=== PATIENT | female | born 2005 | race Caucasian/White ===

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

== ENCOUNTER → 2023-04-07 12:34 | Outpatient (CLI) | payer OTHER, MEDICAID, SELFPAY ==
--- NOTE | 2023-04-07 | DI.RAD.S_ITS ---
PROCEDURE: XR CHEST 2V INDICATIONS: COUGH TECHNIQUE: 2 views of the chest were acquired. COMPARISON: None. FINDINGS: Surgical changes and devices: None. Lungs and pleura: Lungs are clear. No pleural effusions or pneumothorax. Mediastinum: Mediastinal contours are normal. Heart size is normal. Bones and chest wall: No suspicious bony abnormalities. Soft tissues appear unremarkable. IMPRESSION: No acute cardiopulmonary abnormality. Dictated by: Max Onofre M.D. on 04/07/2023 at 14:14 Approved by: Max Onofre M.D. on 04/07/2023 at 14:18
== END ==
PROVIDERS: Family Provider Pediatrics; PCP Physician Assistant Medical; Referring Provider Physician Assistant Medical; Visit Provider Physician Assistant Medical
DX: R07.9 Chest pain, unspecified (principal); R05.9 Cough, unspecified; R53.83 Other fatigue
CPT/HCPCS: 71046

== ENCOUNTER 2023-05-11 19:56 | Emergency (ER) | payer OTHER, MEDICAID, SELFPAY ==
[2023-05-11 20:04] VITALS: BP 132/65; PULSE 98; RESP 16; TEMP 37.1; O2SAT 98; BMI 18.7
[2023-05-11 20:30] LABS: Add Manual Diff / Slide Review NO; Basophils Absolute Auto 0 /uL (0-100); Basophils Percent Auto 0.5 % (0-2); Eosinophils Absolute Auto 0 /uL (0-450); Eosinophils Percent Auto 0.3 % (2-4); Hematocrit 40.4 % (36-46); Hemoglobin 13.6 g/dL (12.0-16.0); Lymphocytes Absolute Auto 1600 /uL (1100-4500); Lymphocytes Percent Auto 17.4 % (25-40); Mean Corpuscular HGB Conc 33.8 % (30-36); Mean Corpuscular Hemoglobin 29.1 PG (26-34); Mean Corpuscular Volume 86.3 fL (80-100); Monocytes Absolute Auto 800 /uL (0-900); Monocytes Percent Auto 9.1 % (3-14); Neutrophils Absolute Auto 6700 /uL (1500-7000); Neutrophils Percent Auto 72.7 % (50-75); Platelet Count 297 X10^3/uL (150-400); Red Blood Cell Count 4.68 X10^6/uL (4.0-5.2); Red Cell Distribution Width 13.7 % (11.6-14.8); White Blood Cell Count 9.2 X10^3/uL (4.5-11.0)
[2023-05-11] MEDS: ONDANSETRON 4 MG/2 ML INJ IV (20:31)
[2023-05-11] MEDS: SODIUM CHLORIDE 0.9% 1,000 ML 1000 ML IV ×2 (20:31→21:48)
--- NOTE | 2023-05-11 20:37 | PC.NURSE ---
Pt states 7 1/2 weeks . states takes zofran 8mg without relief so hasn't taken it in 2 days, states first .
[2023-05-11 20:47] LABS: Alanine Aminotransferase 24 IU/L (<35); Albumin 4.6 g/dL (3.5-5.0); Albumin Globulin Ratio 1.3 (1.0-2.8); Alkaline Phosphatase 54 U/L (38-126); Aspartate Aminotransferase 30 IU/L (14-36); BUN Creatinine Ratio 21.2 (6-22); Bilirubin Total 1.2 mg/dL (0.2-1.3); Blood Urea Nitrogen 11 mg/dL (7-17); Calcium 9.6 mg/dL (8.4-10.2); Carbon Dioxide 20 mmol/L (22-32); Chloride 102 mmol/L (98-107); Estimated Glomerular Filt Rate > 60 mL/min (>60); Globulin 3.6 g/dL (1.7-4.1); Glucose 78 mg/dL (70-100); HEMOLYSIS < 15 (0-50); Sodium 135 mmol/L (137-145); Total Protein 8.2 g/dL (6.3-8.2)
[2023-05-11 21:28] LABS: HCG Quantitative /Beta subunit 90195 mIU/mL
--- NOTE | 2023-05-11 21:34 | ED.NAVMDI ---
HPI - Nausea/Vomiting/Diarrhea General Chief complaint: Nausea/Vomiting/Diarrhea Stated complaint: 7 1/2 weeks cant hold anything down 48hrs Time Seen by Provider: 05/11/23 20:11 Source: patient Mode of arrival: Ambulatory History of Present Illness HPI Narrative: 17-year-old young woman who is 7 weeks by LMP scheduled for 1st OB ultrasound later this week has been seen in clinic only. She is a . Presents with severe nausea and vomiting. She does have Zofran available at home but has been unable to keep anything down for the last 48 hours. No fevers cough or chills. She is not having any vaginal discharge cramping or bleeding. The her significant other and father of the baby is with her and notes that there is multiple twins that run in his family. Related Data Previous Rx's Medication Instructions Recorded mupirocin 2 % topical ointment 1 applic topical BID #22 grams 10/09/22 ondansetron 4 mg disintegrating 4 mg PO Q8H PRN nausea and 10/09/22 tablet vomiting #10 tabs metoclopramide HCl 10 mg tablet 10 mg PO Q6H PRN nausea and 11/07/22 (Reglan) vomiting #20 tabs Allergies Allergy/AdvReac Type Severity Reaction Status Date / Time gluten Allergy Verified 10/03/21 19:18 Review of Systems Review of Systems Narrative: Pertinent positive and negative findings as per HPI Patient History Medical History (Updated 05/12/23 @ 00:44 by Maria Fernanda Hamilton MD) Healthy adolescent Surgical History No history of previous surgery Social History Smoking Status: Never smoker Smoking Status: Never smoker alcohol intake frequency: holidays/special occasions only Substance Use Type: marijuana Exam Initial Vital Signs Initial Vital Signs: Vital Signs Temperature 98.7 F 05/11/23 20:04 Pulse Rate 98 H 05/11/23 20:04 Respiratory Rate 16 05/11/23 20:04 Blood Pressure 132/65 05/11/23 20:04 Pulse Oximetry 98 05/11/23 20:04 Oxygen Delivery Method Room Air 05/11/23 20:04 General: Alert, somewhat pale clutching a blue barf bag Respiratory: Able to speak in full sentences, no obvious respiratory distress Skin: No obvious rashes, warm and dry Neurologic: Grossly intact no obvious asymmetries or abnormalities Abdomen: Soft nontender nondistended Psych: appropriate insight and affect, cooperative Bedside ultrasound: Even after a full L of fluid she has almost no urine in her bladder. I am wondering if I am seeing two gestational sacs. The I am not seeing a pole or heart rate. Will obtain official Ob ultrasound Course Orders Ordered: ED Orders 05/11/23 20:20 Beta HCG, Quant [HCG Quantitative /Beta subunit] Stat Complete Blood Count AUTO DIFF Stat Comprehensive Metabolic Panel Stat 05/11/23 21:43 US OB <= 14 weeks fetus Stat Discontinued Medications Sodium Chloride (Normal Saline 0.9%) 1,000 mls @ 1,000 mls/hr IV BOLUS ONE Stop: 05/11/23 21:10 Last Infusion: 05/11/23 21:32 Dose: 0 mls/hr Documented By: Admin: 05/11/23 20:31 Dose: 1,000 mls/hr Documented By: VIANNEY Sodium Chloride (Normal Saline 0.9%) 1,000 mls @ 1,000 mls/hr IV BOLUS ONE Stop: 05/11/23 22:43 Last Infusion: 05/11/23 22:18 Dose: 0 mls/hr Documented By: Admin: 05/11/23 21:48 Dose: 1,000 mls/hr Documented By: BRANDO Ondansetron HCl (Ondansetron 4 Mg/2 Ml Inj) 4 mg IV NOW ONE Stop: 05/11/23 20:12 Last Admin: 05/11/23 20:31 Dose: 4 mg Documented By: VIANNEY Vital Signs Vital signs: Vital Signs - 8 hr 05/11/23 20:04 05/12/23 00:23 Temperature 98.7 F Pulse Rate 98 H 77 Respiratory Rate 16 18 Blood Pressure 132/65 108/51 L Pulse Oximetry 98 97 Oxygen Delivery Method Room Air Room Air MDM - Nausea/Vomiting/Diarrhea Lab Data 05/11/23 20:20 05/11/23 20:20 Labs: Lab Results 05/11/23 05/11/23 Range/Units 20:20 20:20 WBC 9.2 (4.5-11.0) X10^3/uL RBC 4.68 (4.0-5.2) X10^6/uL Hgb 13.6 (12.0-16.0) g/dL Hct 40.4 (36-46) % MCV 86.3 (80-100) fL MCH 29.1 (26-34) PG MCHC 33.8 (30-36) % RDW 13.7 (11.6-14.8) % Plt Count 297 (150-400) X10^3/uL Neut % (Auto) 72.7 (50-75) % Lymph % (Auto) 17.4 L (25-40) % [place] % (Auto) 9.1 (3-14) % Eos % (Auto) 0.3 L (2-4) % Baso % (Auto) 0.5 (0-2) % Neut # (Auto) 6700 (2205-4029) /uL Lymph # (Auto) 1600 (4022-1538) /uL [place] # (Auto) 800 (0-900) /uL Eos # (Auto) 0 (0-450) /uL Baso # (Auto) 0 (0-100) /uL Sodium 135 L (137-145) mmol/L Potassium 4.0 (3.4-5.1) mmol/L Chloride 102 (98-107) mmol/L Carbon Dioxide 20 L (22-32) mmol/L BUN 11 (7-17) mg/dL Creatinine 0.52 (0.52-1.04) mg/dL Estimated GFR > 60 (>60) mL/min BUN/Creatinine Ratio 21.2 (6-22) Glucose 78 (70-100) mg/dL Calcium 9.6 (8.4-10.2) mg/dL Total Bilirubin 1.2 (0.2-1.3) mg/dL AST 30 (14-36) IU/L ALT 24 (<35) IU/L Alkaline Phosphatase 54 (38-126) U/L Total Protein 8.2 (6.3-8.2) g/dL Albumin 4.6 (3.5-5.0) g/dL Globulin 3.6 (1.7-4.1) g/dL Albumin/Globulin Ratio 1.3 (1.0-2.8) HCG, Quant 49127 mIU/mL Urine Dip Bedside Urine Glucose Negative Bedside Urine Bilirubin - Negative Bedside Urine Ketone +++ 80 Urine Specific [place] 1.030 Bedside Urine Occult Blood - Negative Bedside Urine pH 6.0 Bedside Urine Protein - Negative Bedside Urine Urobilinogen - Negative Bedside Urine Nitrite - Negative Bedside Urine Leukocytes - Negative Esterase MDM Narrative Medical decision making narrative: CC: Nausea and vomiting with early Complicating co-morbidities: , 17 years old Data collected from: patient, significant other/father of the baby Differential considered: Hyperemesis gravidarum, normal early , ectopic , multiple gestation, molar Exam documented above, pertinent findings include: Moderately dehydrated but otherwise benign exam Lab Test results independently reviewed as above. Pertinent findings: CBC is unremarkable Chemistries are reassuring Quantitative hCG is 90,195 which can certainly be consistent with estimated 7 week gestational age Imaging studies independently reviewed: ultrasound shows single live intrauterine fetus gestational age 6 weeks 3 days with AREN of December 31. Treatments: 2 L of fluid, IV Zofran Discussion: Patient is feeling much better after the fluid resuscitation. Normal intrauterine reassurance is given. Reviewed labs as well as ultrasound findings. She has OB follow-up already scheduled. She has antiemetics available at home. We talked about diet alternatives that may be helpful with early nausea in . Questions are answered and she is safe for discharge Discharge Plan Departure Patient Disposition: Home Clinical Impression: Acute dehydration Qualifiers: Weeks of gestation: less than 8 weeks Qualified Code(s): Z3A.01 - Less than 8 weeks gestation of Nausea & vomiting Qualifiers: Vomiting type: unspecified Qualified Code(s): R11.2 - Nausea with vomiting, unspecified Instructions: A Survival Guide for Men, DI for Hyperemesis Gravidarum, DI for -- Discomforts and Remedies Activity Restrictions/Additional Instructions: Thank you for coming in today You were quite dehydrated. He certainly looks better and appear to feel better after receiving 2 L of fluid. Your blood work was very reassuring, there is no evidence of infection kidney problems liver problems. No significant electrolyte abnormalities. The ultrasound that we did shows a 6 week 3 day single baby inside your uterus. This gives you a due date of January 01, 2024. Congratulations! Please talk to your OB doctor. You may not need to repeat this ultrasound on Friday as scheduled. Please use the nausea medicine the available at home. Try small bits of fluid frequently and small bites of crackers to help with the nausea. If you find that you are getting worse or develop any new symptoms, please feel free to return to the emergency department for further evaluation. Prescriptions: No Action mupirocin 2 % ointment 1 applic topical BID Qty: 22 0RF ondansetron 4 mg tablet,disintegrating 4 mg PO Q8H PRN (Reason: nausea and vomiting) Qty: 10 0RF metoclopramide HCl [Reglan] 10 mg tablet 10 mg PO Q6H PRN (Reason: nausea and vomiting) Qty: 20 0RF Referrals: Caridad Zaidi PA-C [Primary Care Provider] - Stand Alone Forms: Patient Portal/API
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
[2023-05-12 00:23] VITALS: BP 108/51; PULSE 77; RESP 18; O2SAT 97
== END 2023-05-12 00:54 | disposition home or self-care (01) ==
PROVIDERS: Emergency Provider Emergency Medicine; Family Provider Pediatrics; PCP Physician Assistant Medical
DX: O21.9 Vomiting of pregnancy, unspecified (principal); E86.0 Dehydration; Z3A.01 Less than 8 weeks gestation of pregnancy
CPT/HCPCS: 36415; 76801; 76817; 80053; 81003; 84702; 85025; 96361; 96374; 99284; J2405

== ENCOUNTER → 2023-06-27 11:15 | Outpatient (CLI) | payer OTHER, MEDICAID, SELFPAY ==
[2023-06-27 12:14] LABS: Influenza A - CEPHEID Flu A NEGATIVE (NEGATIVE); Influenza B - CEPHEID Flu B NEGATIVE (NEGATIVE); Respiratory Syncytial Virus Negative (Negative)
[2023-06-27 12:16] LABS: COVID-19 CEPHEID 4-PLEX PCR Negative (Negative)
== END ==
PROVIDERS: Family Provider Pediatrics; PCP Physician Assistant Medical; Visit Provider Family Medicine
DX: J02.9 Acute pharyngitis, unspecified (principal)
CPT/HCPCS: 0241U

== ENCOUNTER → 2023-07-08 11:41 | Outpatient (CLI) | payer OTHER, MEDICAID, SELFPAY ==
[2023-07-08 13:03] LABS: Add Manual Diff / Slide Review NO; Basophils Absolute Auto 0 /uL (0-100); Basophils Percent Auto 0.5 % (0-2); Eosinophils Absolute Auto 100 /uL (0-450); Eosinophils Percent Auto 0.9 % (2-4); Hematocrit 34.4 % (36-46); Hemoglobin 12.2 g/dL (12.0-16.0); Lymphocytes Absolute Auto 1700 /uL (1100-4500); Lymphocytes Percent Auto 23.8 % (25-40); Mean Corpuscular HGB Conc 35.4 % (30-36); Mean Corpuscular Hemoglobin 31.4 PG (26-34); Mean Corpuscular Volume 88.7 fL (80-100); Monocytes Absolute Auto 600 /uL (0-900); Monocytes Percent Auto 8.7 % (3-14); Neutrophils Absolute Auto 4600 /uL (1500-7000); Neutrophils Percent Auto 66.1 % (50-75); Platelet Count 271 X10^3/uL (150-400); Red Blood Cell Count 3.88 X10^6/uL (4.0-5.2); Red Cell Distribution Width 16.2 % (11.6-14.8); White Blood Cell Count 6.9 X10^3/uL (4.5-11.0)
[2023-07-08 13:21] LABS: Appearance Urine UA SL CLOUDY; Bilirubin Urine UA NEGATIVE (NEGATIVE); Color Urine UA YELLOW; Glucose Urine UA NEGATIVE (Negative); Ketones Urine UA NEGATIVE (NEGATIVE); Leukocyte Esterase Urine UA NEGATIVE (NEGATIVE); Nitrite Urine UA NEGATIVE (Negative); Occult Blood Urine UA NEGATIVE (Negative); Protein Urine UA NEGATIVE (Negative); Specific Gravity Urine UA 1.015 (1.000-1.035); Urobilinogen Urine UA 0.2 E.U./dL (0.2)
[2023-07-09 07:23] LABS: RPR Screen Non Reactive (Non Reactive)
[2023-07-09 09:00] LABS: Varicella IgG Antibody <135 index (Immune >165)
[2023-07-10 18:25] LABS: Hepatitis B Surface Antigen NEGATIVE s/c (NEGATIVE); Rubella Antibody IgG 79.5 IU/mL (>15)
[2023-07-10 18:39] LABS: HIV 1 & 2 Ab/Ag 4th Gen Combo NEGATIVE (NEGATIVE); Hep C Virus Ab w/Reflex Quant NEGATIVE s/c (NEGATIVE)
== END ==
PROVIDERS: Family Provider Pediatrics; PCP Physician Assistant Medical; Referring Provider Family Medicine; Visit Provider Family Medicine
DX: Z34.00 Encounter for supervision of normal first pregnancy, unspecified trimester (principal)
CPT/HCPCS: 36415; 80055; 81003; 86787; 86803; 86850; 86900; 86901; 87086; 87389

== ENCOUNTER 2023-07-28 16:33 | Emergency (ER) | payer OTHER, MEDICAID, SELFPAY ==
[2023-07-28 16:45] VITALS: BP 117/68; PULSE 112; RESP 18; TEMP 37; O2SAT 96; BMI 18.8
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
[2023-07-28 17:21] LABS: Add Manual Diff / Slide Review NO; Basophils Absolute Auto 100 /uL (0-100); Basophils Percent Auto 0.7 % (0-2); Eosinophils Absolute Auto 100 /uL (0-450); Eosinophils Percent Auto 1.3 % (2-4); Hematocrit 31.2 % (36-46); Hemoglobin 11.1 g/dL (12.0-16.0); Lymphocytes Absolute Auto 1800 /uL (1100-4500); Lymphocytes Percent Auto 23.4 % (25-40); Mean Corpuscular HGB Conc 35.6 % (30-36); Mean Corpuscular Hemoglobin 31.7 PG (26-34); Monocytes Absolute Auto 700 /uL (0-900); Monocytes Percent Auto 9.6 % (3-14); Neutrophils Absolute Auto 4900 /uL (1500-7000); Platelet Count 285 X10^3/uL (150-400); Red Blood Cell Count 3.51 X10^6/uL (4.0-5.2); Red Cell Distribution Width 15.6 % (11.6-14.8); White Blood Cell Count 7.5 X10^3/uL (4.5-11.0)
[2023-07-28 17:24] LABS: Prothrombin Time 11.8 SECONDS (9.4-12.5)
[2023-07-28 17:29] LABS: Alanine Aminotransferase 17 IU/L (<35); Albumin 3.8 g/dL (3.5-5.0); Albumin Globulin Ratio 1.2 (1.0-2.8); Alkaline Phosphatase 51 U/L (38-126); Aspartate Aminotransferase 22 IU/L (14-36); BUN Creatinine Ratio 15.9 (6-22); Bilirubin Total 0.4 mg/dL (0.2-1.3); Blood Urea Nitrogen 7 mg/dL (7-17); Calcium 9.4 mg/dL (8.4-10.2); Carbon Dioxide 23 mmol/L (22-32); Chloride 104 mmol/L (98-107); Estimated Glomerular Filt Rate > 60 mL/min (>60); Globulin 3.2 g/dL (1.7-4.1); Glucose 95 mg/dL (70-100); HEMOLYSIS < 15 (0-50); Lipase 73 U/L (23-300); Potassium 3.7 mmol/L (3.4-5.1); Sodium 135 mmol/L (137-145)
[2023-07-28 17:51] LABS: Appearance Urine UA CLEAR; Bilirubin Urine UA NEGATIVE (NEGATIVE); Color Urine UA YELLOW; Glucose Urine UA NEGATIVE (Negative); Ketones Urine UA NEGATIVE (NEGATIVE); Leukocyte Esterase Urine UA NEGATIVE (NEGATIVE); Nitrite Urine UA NEGATIVE (Negative); Occult Blood Urine UA NEGATIVE (Negative); Protein Urine UA NEGATIVE (Negative); Specific Gravity Urine UA 1.015 (1.000-1.035); Urobilinogen Urine UA 0.2 E.U./dL (0.2)
[2023-07-28 18:02] LABS: Bacteria Urine Few (2-10); Culture Indicated Urine Cult Not Indicated; RBC Urine 0-1/HPF (0-5/HPF); Squamous Epithelial Cell Urine 1-5 /HPF (0-5/HPF); WBC Urine 0-1/HPF (0-5/HPF)
[2023-07-28 20:54] VITALS: BP 117/61; PULSE 73; RESP 14; O2SAT 100
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
[2023-07-28 21:56] VITALS: BP 128/72; PULSE 81; RESP 20; TEMP 36.6
== END 2023-07-28 21:55 | disposition home or self-care (01) ==
PROVIDERS: Emergency Medicine; Emergency Provider Emergency Medicine; Family Provider Pediatrics; PCP Physician Assistant Medical
DX: O26.892 Other specified pregnancy related conditions, second trimester (principal); M54.9 Dorsalgia, unspecified; V40.5XXA Car driver injured in collision with pedestrian or animal in traffic accident, initial encounter; Y92.410 Unspecified street and highway as the place of occurrence of the external cause; Z3A.18 18 weeks gestation of pregnancy
CPT/HCPCS: 36415; 76815; 80053; 81001; 83690; 85025; 85610; 86850; 86900; 86901; 99283; 99284

== ENCOUNTER → 2023-08-15 11:51 | Outpatient (CLI) | payer OTHER, MEDICAID, SELFPAY ==
[2023-08-21 21:42] LABS: AFP, Serum 49.7 ng/mL (.); Calc Gestational Age EDD (.); Estriol, Free 2.19 ng/mL (.); Inhibin A, Dimeric 115.72 pg/mL (.); Inhibin A, MoM 0.54 (.); Maternal Ethnicity Caucasian (.); Maternal Weight 116 lbs (.); Number of Fetuses No (.); OSBR Risk 1 IN 10000 (.); Results Report (.); Test Results *Screen Negative* (.); hCG, Serum 15316 mIU/mL (.)
== END ==
PROVIDERS: Family Provider Pediatrics; Referring Provider Family Medicine; Visit Provider Family Medicine
DX: Z34.00 Encounter for supervision of normal first pregnancy, unspecified trimester (principal); Z3A.15 15 weeks gestation of pregnancy
CPT/HCPCS: 36415; 82105; 82677; 84702; 86336

== ENCOUNTER → 2023-08-22 16:14 | Outpatient (CLI) | payer OTHER, MEDICAID, SELFPAY ==
--- NOTE | 2023-08-22 16:16 | DI.US.S_ITS ---
PROCEDURE: US OB >= 14 WEEKS FETUS INDICATIONS: ANATOMY OUTSIDE/PRIOR DATING DATA: Last menstrual period (LMP): 03/23/2023. LMP-based estimated date of delivery (AREN): 12/28/2023. (Working AREN) First dating scan (date and location): 05/11/2023. Estimated date of delivery (AREN) from first dating scan: 01/01/2024. TECHNIQUE: Real-time scanning was performed of the fetus, with image documentation and biometric measurements. COMPARISON: [facility], OB LIMITED, 07/28/2023, 17:13. FINDINGS: General: A single living intrauterine gestation is present. Presentation: Breech. Placenta: Placental position is fundal , without previa. Amniotic fluid index: 13.6 cm, normal range is 5-24 cm. Single deepest vertical pocket is 4.5 cm. heart rate: 149 beats per minute. Maternal cervical canal: 3.5 cm long. Normal lower limit is 2.5 cm. biometrics: Biparietal diameter: 5 centimeters, 21 weeks and 2 days Head circumference: 18.9 centimeters, 21 weeks and 1 day Abdominal circumference: 16.6 centimeters, 21 weeks and 4 days Femur length: 3.6 centimeters, 21 weeks and 3 days Clinically estimated gestational age: 21 weeks and 5 days Composite gestational age from present scan: 21 weeks and 3 days Estimated weight and percentile: 425 grams, 31st percentile Anatomic survey: Neuro: Ventricles are non-dilated at less than 10 mm. Cisterna magna is normal at 3-11 mm. Cerebellum is normal in size and morphology. Nuchal skin fold: Normal at less than 6 mm between 14-21 weeks gestational age. Face: Nose and lips, facial profile are normal. Spine: No evidence for spina bifida. Heart: 4-chambered heart is present, with normal ventricular outflow tracts. Diaphragm: Diaphragm is intact. Stomach: Left-sided stomach is present. Kidneys: No hydronephrosis. Normal is less than 5 mm in 2nd trimester, less than 7 mm in 3rd trimester. Cord: 3-vessel cord has orthotopic insertion. Bladder: Normal in size. Extremities: All 4 extremities identified. IMPRESSION: Living intrauterine gestation at 21 weeks and 5 days. Biometry is concordant, with EFW at the 31st percentile. No significant abnormalities on routine anatomic survey Dictated by: Kareem Guerrero M.D. on 08/26/2023 at 12:38 Approved by: Kareem Guerrero M.D. on 08/26/2023 at 12:43
== END ==
LOC: US 16:15
PROVIDERS: Family Provider Pediatrics; Referring Provider Family Medicine; Visit Provider Family Medicine
DX: Z34.82 Encounter for supervision of other normal pregnancy, second trimester (principal); Z3A.21 21 weeks gestation of pregnancy
CPT/HCPCS: 76811

== ENCOUNTER → 2023-09-16 14:08 | Outpatient (CLI) | payer OTHER, MEDICAID, SELFPAY ==
[2023-09-16 15:28] LABS: Add Manual Diff / Slide Review NO; Basophils Absolute Auto 0 /uL (0-100); Basophils Percent Auto 0.6 % (0-2); Eosinophils Absolute Auto 100 /uL (0-450); Eosinophils Percent Auto 1.3 % (2-4); Hematocrit 29.4 % (36-46); Hemoglobin 10.2 g/dL (12.0-16.0); Lymphocytes Absolute Auto 2000 /uL (1100-4500); Mean Corpuscular HGB Conc 34.7 % (30-36); Mean Corpuscular Hemoglobin 32.6 PG (26-34); Mean Corpuscular Volume 93.8 fL (80-100); Monocytes Absolute Auto 1000 /uL (0-900); Monocytes Percent Auto 13.1 % (3-14); Neutrophils Absolute Auto 4800 /uL (1500-7000); Platelet Count 315 X10^3/uL (150-400); Red Blood Cell Count 3.13 X10^6/uL (4.0-5.2); Red Cell Distribution Width 13.1 % (11.6-14.8); White Blood Cell Count 7.9 X10^3/uL (4.5-11.0)
[2023-09-16 15:48] LABS: GTT (PREG) 1 Hour PP 50gm Dose 96 mg/dL (76-139)
== END ==
PROVIDERS: Family Provider Pediatrics; Referring Provider Family Medicine; Visit Provider Family Medicine
DX: Z34.02 Encounter for supervision of normal first pregnancy, second trimester (principal); R42 Dizziness and giddiness
CPT/HCPCS: 36415; 82950; 85025

== ENCOUNTER → 2023-10-14 16:08 | Outpatient (CLI) | payer OTHER, MEDICAID, SELFPAY ==
[2023-10-14 18:07] LABS: Add Manual Diff / Slide Review NO; Basophils Absolute Auto 100 /uL (0-100); Basophils Percent Auto 0.6 % (0-2); Eosinophils Absolute Auto 100 /uL (0-450); Hematocrit 31.8 % (36-46); Hemoglobin 10.9 g/dL (12.0-16.0); Lymphocytes Absolute Auto 1900 /uL (1100-4500); Mean Corpuscular HGB Conc 34.1 % (30-36); Mean Corpuscular Hemoglobin 30.8 PG (26-34); Mean Corpuscular Volume 90.2 fL (80-100); Monocytes Absolute Auto 1000 /uL (0-900); Monocytes Percent Auto 10.8 % (3-14); Neutrophils Absolute Auto 6600 /uL (1500-7000); Neutrophils Percent Auto 67.6 % (50-75); Platelet Count 366 X10^3/uL (150-400); Red Blood Cell Count 3.53 X10^6/uL (4.0-5.2); Red Cell Distribution Width 12.5 % (11.6-14.8); White Blood Cell Count 9.7 X10^3/uL (4.5-11.0)
[2023-10-14 18:26] LABS: Alanine Aminotransferase 19 IU/L (<35); Albumin Globulin Ratio 1.1 (1.0-2.8); Alkaline Phosphatase 82 U/L (38-126); Aspartate Aminotransferase 25 IU/L (14-36); BUN Creatinine Ratio 13.6 (6-22); Bilirubin Total 0.4 mg/dL (0.2-1.3); Blood Urea Nitrogen 6 mg/dL (7-17); Calcium 9.6 mg/dL (8.4-10.2); Carbon Dioxide 24 mmol/L (22-32); Chloride 103 mmol/L (98-107); Estimated Glomerular Filt Rate > 60 mL/min (>60); Globulin 3.7 g/dL (1.7-4.1); Glucose 80 mg/dL (70-100); HEMOLYSIS < 15 (0-50); Potassium 4.4 mmol/L (3.4-5.1); Sodium 136 mmol/L (137-145); Total Protein 7.7 g/dL (6.3-8.2)
[2023-10-17 10:47] LABS: Bile Acids 3.6 umol/L (0.0-10.0)
== END ==
PROVIDERS: Family Provider Pediatrics; Referring Provider Family Medicine; Visit Provider Family Medicine
DX: Z34.00 Encounter for supervision of normal first pregnancy, unspecified trimester (principal)
CPT/HCPCS: 36415; 80053; 82239; 85025

== ENCOUNTER 2023-10-24 10:47 | Outpatient (CLI) | payer OTHER, MEDICAID, SELFPAY ==
--- NOTE | 2023-10-24 11:43 | PM.OBTRLD ---
Visit Information Visit Information Date of evaluation: 10/24/23 Primary OB Provider: Artemio Hussein Reason for Evaluation: Yes other Comments/Additional reasons for admission: 17-year-old G1 at GA 30+1 weeks sent from clinic due to report of decreased movement and perceived dropped beats on Doppler. No vb, lof, abd pain, ctx. [facility] Medical History (Updated 10/24/23 @ 11:48 by Artemio Hussein MD) PTSD (post-traumatic stress disorder) (~2020) Anxiety (~2016) Depression (~2016) GERD (gastroesophageal reflux disease) (~2019) Menorrhagia Dysmenorrhea (~2015) Irregular menses Frequent infections Contusion of right elbow Lumbar spine strain Gastroenteritis Abdominal pain Healthy adolescent Surgical History (Updated 08/30/23 @ 21:01 by Luda Avilez) Anesthesia History of endoscopy [place] teeth extracted (~09/02/19) Family History Grandfather Hypertension Heart disease Social History marital status: unmarried,living together number of children: 1 (s/o's son stays with them part-time) household members: significant other and family (father, brother) lives independently: Yes caregiver/support person: No housing: house pets and animals: Yes (outdoor cats) education level: high school (did not finish) 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) special donovan needs: No travel history: over 6 months ago seatbelt use: always water heater temp set < 120 deg: Yes working smoke detector in home: Yes fire extinguisher in home: Yes carbon monox detector in home: Yes firearms in home: Yes firearms unloaded and locked: Yes do you feel safe at home: Yes Smoking Status: Former smoker second hand exposure: Yes (s/o vapes, but usually not at home) alcohol intake: former (occasionally prior to ) substance use type: marijuana (agrees not to use while /) and 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) during the past year weight has: other (very unstable) well-balanced diet: daily or most days daily servings fruits/ve or more times/day caffeine: Yes (small amounts only) Type(s) of exercise: none Evaluation Evaluation Baseline heart rate: 145 Variability: Moderate (11-25) monitor accelerations: Present Monitor Decelerations: Absent Category of Tracing: Reactive Status: Category l Comments: No contractions Diagnosis, Plan/Disposition Final Diagnosis (1) Decreased movement affecting management of in third trimester: Status: Acute Plan/Disposition Plan: heart tracing reactive, category 1 inpatient now feeling her baby move regularly. Discharge home with return precautions, follow-up as scheduled visit in 2 weeks. OB Disposition: home
== END 2023-10-24 12:00 | disposition home or self-care (01) ==
LOC: LABOR 12:56 → OB 10-27 11:07
PROVIDERS: Family Provider Pediatrics; Referring Provider Family Medicine; Visit Provider Family Medicine
DX: O36.8130 Decreased fetal movements, third trimester, not applicable or unspecified (principal); Z3A.30 30 weeks gestation of pregnancy
CPT/HCPCS: 59025; G0378; G0379

== ENCOUNTER → 2023-12-05 14:59 | Outpatient (CLI) | payer OTHER, MEDICAID, SELFPAY ==
[2023-12-06 12:14] LABS: Strep Grp B PCR POS for Grp B Strep
== END ==
PROVIDERS: Family Provider Pediatrics; PCP Family Medicine; Visit Provider Family Medicine
DX: Z34.00 Encounter for supervision of normal first pregnancy, unspecified trimester (principal)
CPT/HCPCS: 87653

== ENCOUNTER 2023-12-14 20:19 | Outpatient (CLI) | payer OTHER, MEDICAID, SELFPAY ==
--- NOTE | 2023-12-14 21:00 | P.TNLD_ITS ---
Visit Information Visit Information Date of evaluation: 12/14/23 Primary OB Provider: Artemio Hussein On-call OB Provider: Mary Ruelas Reason for Evaluation: Yes rupture of membranes Comments/Additional reasons for admission: possible rupture of membranes/labor Vital Signs Vital Signs: BP 1145/69,, P 92, T 36.2 [facility] Medical History (Updated 12/14/23 @ 21:07 by Mary Ruelas MD) PTSD (post-traumatic stress disorder) (~2020) Anxiety (~2016) Depression (~2016) GERD (gastroesophageal reflux disease) (~2019) Menorrhagia Dysmenorrhea (~2015) Irregular menses Frequent infections Contusion of right elbow Lumbar spine strain Gastroenteritis Abdominal pain Healthy adolescent Surgical History (Updated 08/30/23 @ 21:01 by Luda Avilez) Anesthesia History of endoscopy [place] teeth extracted (~09/02/19) Family History Grandfather Hypertension Heart disease Social History marital status: unmarried,living together number of children: 1 (s/o's son stays with them part-time) household members: significant other and family (father, brother) lives independently: Yes caregiver/support person: No housing: house pets and animals: Yes (outdoor cats) education level: high school (did not finish) 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) special donovan needs: No travel history: over 6 months ago seatbelt use: always water heater temp set < 120 deg: Yes working smoke detector in home: Yes fire extinguisher in home: Yes carbon monox detector in home: Yes firearms in home: Yes firearms unloaded and locked: Yes do you feel safe at home: Yes Smoking Status: Former smoker second hand exposure: Yes (s/o vapes, but usually not at home) alcohol intake: former (occasionally prior to ) substance use type: marijuana (agrees not to use while /) and 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) during the past year weight has: other (very unstable) well-balanced diet: daily or most days daily servings fruits/ve or more times/day caffeine: Yes (small amounts only) Type(s) of exercise: none Review of Systems Review of Systems Narrative: Patient had intercourse this morning and had wet underwear after. She began have cramping /10 and her underwear was wet again. Evaluation Evaluation Baseline heart rate: 130 Variability: Average (6-10) monitor accelerations: Present Monitor Decelerations: Absent Contraction Frequency (minutes): 3 Uterine Contraction Intensity: Mild Category of Tracing: Reactive Status: Category l Cervical dilation (cm): 1 Cervical effacement (%): 0 station: -1 Non-invasive Membranes Rupture Test: negative Diagnosis, Plan/Disposition Final Diagnosis (1) False labor after 37 completed weeks of gestation: Status: Acute Plan/Disposition Plan: Reassurance not ruptured. Return if pain increases, more fluid leakage, concerns about baby movement OB Disposition: home
== END 2023-12-14 21:05 | disposition home or self-care (01) ==
LOC: OB 12-15 15:26
PROVIDERS: Family Provider Pediatrics; PCP Family Medicine; Referring Provider Specialist; Visit Provider Specialist
DX: O47.1 False labor at or after 37 completed weeks of gestation (principal); Z3A.37 37 weeks gestation of pregnancy
CPT/HCPCS: 59025; 84112; G0378; G0379

== ENCOUNTER 2023-12-22 19:37 | Emergency (ER) | payer OTHER, MEDICAID, SELFPAY ==
[2023-12-22 19:48] VITALS: BP 114/70; PULSE 101; RESP 20; TEMP 37; O2SAT 96; BMI 25.7
[2023-12-22 20:13] LABS: Strep Grp A by PCR Rapid Negative (Negative)
[2023-12-22 21:39] VITALS: BP 130/82; PULSE 98; RESP 18; O2SAT 98
--- NOTE | 2023-12-22 21:52 | ED.GENADULT ---
HPI - General Adult General Chief complaint: Upper Respiratory Symptoms Stated complaint: sudden onset short of breath, snt by center Time Seen by Provider: 12/22/23 19:58 Source: patient Mode of arrival: Ambulatory History of Present Illness HPI narrative: Patient is a 18-year-old female. at approximately 38 weeks EGA. No vaginal bleeding. No vaginal discharge she was here for evaluation of several weeks of shortness of breath now having a sore throat and sinus congestion and ear pain. No chest pain. She was having a cough. She contacted her OB provider who advised that she come to the emergency department for further evaluation. Related Data Previous Rx's Medication Instructions Recorded ondansetron 4 mg disintegrating 4 mg PO Q8H PRN nausea and 10/09/22 tablet vomiting #10 tabs ferrous gluconate 240 mg (27 mg 240 mg PO Q OTHER DAY 60 days #30 09/16/23 iron) tablet (Fergon) tabs triamcinolone acetonide 0.1 % 1 applic topical BID #80 grams 10/14/23 topical cream hydroxyzine pamoate 25 mg capsule 25 mg PO BEDTIME PRN for anxiety 10/24/23 (Vistaril) #60 caps Allergies Allergy/AdvReac Type Severity Reaction Status Date / Time gluten AdvReac Intermediate Abdominal Verified 12/19/23 10:27 Pain Review of Systems Review of Systems Narrative: See HPI Patient History Medical History PTSD (post-traumatic stress disorder) (~2020) Anxiety (~2016) Depression (~2016) GERD (gastroesophageal reflux disease) (~2019) Menorrhagia Dysmenorrhea (~2015) Irregular menses Frequent infections Contusion of right elbow Lumbar spine strain Gastroenteritis Abdominal pain Healthy adolescent Surgical History (Updated 08/30/23 @ 21:01 by Luda Avilez) Anesthesia History of endoscopy [place] teeth extracted (~09/02/19) Family History Grandfather Hypertension Heart disease Social History marital status: unmarried,living together number of children: 1 (s/o's son stays with them part-time) household members: significant other and family (father, brother) lives independently: Yes caregiver/support person: No housing: house pets and animals: Yes (outdoor cats) education level: high school (did not finish) 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) special donovan needs: No travel history: over 6 months ago seatbelt use: always water heater temp set < 120 deg: Yes working smoke detector in home: Yes fire extinguisher in home: Yes carbon monox detector in home: Yes firearms in home: Yes firearms unloaded and locked: Yes do you feel safe at home: Yes Smoking Status: Former smoker second hand exposure: Yes (s/o vapes, but usually not at home) alcohol intake: former (occasionally prior to ) substance use type: marijuana (agrees not to use while /) and 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) during the past year weight has: other (very unstable) well-balanced diet: daily or most days daily servings fruits/ve or more times/day caffeine: Yes (small amounts only) Type(s) of exercise: none Smoking Status: Former smoker alcohol intake frequency: holidays/special occasions only Substance Use Type: marijuana Exam Initial Vital Signs Initial Vital Signs: Vital Signs Temperature 98.6 F 12/22/23 19:48 Pulse Rate 101 H 12/22/23 19:48 Respiratory Rate 20 12/22/23 19:48 Blood Pressure 114/70 12/22/23 19:48 Pulse Oximetry 96 12/22/23 19:48 Oxygen Delivery Method Room Air 12/22/23 19:48 HENMT Head: normal to inspection and normocephalic Ears: TM's normal bilaterally Mouth: oral mucosae normal and moist mucous membranes Throat: posterior oropharynx normal and tonsils normal Resp Effort & Inspection: normal respiratory effort Auscultation: clear to auscultation bilaterally GI Other: Gravid abdomen Neuro General: patient alert, patient awake, patient oriented x3 and moves all extremities Course Orders Ordered: ED Orders 12/22/23 19:55 Strep Grp A by PCR Rapid Stat Vital Signs Vital signs: Vital Signs - 8 hr 12/22/23 19:48 12/22/23 21:39 Temperature 98.6 F Pulse Rate 101 H 98 H Respiratory Rate 20 18 Blood Pressure 114/70 130/82 Pulse Oximetry 96 98 Oxygen Delivery Method Room Air Room Air Medical Decision Making Lab Data Lab results reviewed: Yes I reviewed the patient's lab results. Labs: Lab Results 12/22/23 Range/Units 19:55 Group A Strep (PCR) Negative (Negative) MDM Narrative Medical decision making narrative: Rapid strep is negative. Lungs are clear. Low suspicion for pneumonia given her status we will hold on a chest x-ray for now. Rest of her HEENT exam is unremarkable. She has no -related complaints. Symptoms most consistent with viral URI. No indication for antibiotics. Given her status she is somewhat limited on what she can take but we did talk about Tylenol and also other decongestants such as Claritin under safety use in . Will discharge patient home with instructions to keep all of your scheduled medical appointments. She was given return precautions. She expressed understanding and agreement. Discharge Plan Departure Patient Disposition: Home Clinical Impression: Upper respiratory infection Instructions: DI for Viral Upper Respiratory Infection -- Adult Activity Restrictions/Additional Instructions: Keep all of your scheduled medical appointments. You can take Claritin to try to help with some of the nasal congestion. You can take Tylenol as well. Return to the emergency department for new symptoms. Prescriptions: No Action hydroxyzine pamoate [Vistaril] 25 mg capsule 25 mg PO BEDTIME PRN (Reason: for anxiety ) Qty: 60 0RF triamcinolone acetonide 0.1 % cream 1 applic topical BID Qty: 80 1RF ferrous gluconate [Fergon] 240 mg (27 mg iron) tablet 240 mg PO Q OTHER DAY 60 Days Qty: 30 2RF ondansetron 4 mg tablet,disintegrating 4 mg PO Q8H PRN (Reason: nausea and vomiting) Qty: 10 0RF Referrals: Artemio Hussein MD [Primary Care Provider] - Stand Alone Forms: Patient Portal/API
== END 2023-12-22 22:00 | disposition home or self-care (01) ==
PROVIDERS: Emergency Provider Emergency Medicine; Family Provider Pediatrics; PCP Family Medicine
DX: O99.513 Diseases of the respiratory system complicating pregnancy, third trimester (principal); J06.9 Acute upper respiratory infection, unspecified; Z3A.38 38 weeks gestation of pregnancy; Z87.891 Personal history of nicotine dependence
CPT/HCPCS: 87651; 99281; 99282

== ENCOUNTER 2023-12-23 17:00 | Observation (INO) | payer OTHER, MEDICAID, SELFPAY ==
[2023-12-23] MEDS: LACTATED RINGERS 1,000 ML 1000 ML IV (17:30)
[2023-12-23 18:01] LABS: Add Manual Diff / Slide Review NO; Basophils Absolute Auto 0 /uL (0-100); Basophils Percent Auto 0.2 % (0-2); Eosinophils Absolute Auto 0 /uL (0-450); Eosinophils Percent Auto 0.2 % (2-4); Hematocrit 29.5 % (36-46); Hemoglobin 9.8 g/dL (12.0-16.0); Lymphocytes Absolute Auto 1100 /uL (1100-4500); Lymphocytes Percent Auto 7.5 % (25-40); Mean Corpuscular HGB Conc 33.3 % (30-36); Mean Corpuscular Hemoglobin 28.6 PG (26-34); Mean Corpuscular Volume 85.8 fL (80-100); Monocytes Absolute Auto 1500 /uL (0-900); Monocytes Percent Auto 10.6 % (3-14); Neutrophils Absolute Auto 11500 /uL (1500-7000); Neutrophils Percent Auto 81.5 % (50-75); Platelet Count 287 X10^3/uL (150-400); Red Blood Cell Count 3.44 X10^6/uL (4.0-5.2); Red Cell Distribution Width 16.2 % (11.6-14.8); White Blood Cell Count 14.1 X10^3/uL (4.5-11.0)
[2023-12-23 18:48] LABS: Appearance Urine UA CLEAR; Bilirubin Urine UA NEGATIVE (NEGATIVE); Color Urine UA YELLOW; Glucose Urine UA NEGATIVE (Negative); Ketones Urine UA NEGATIVE (NEGATIVE); Leukocyte Esterase Urine UA 1+ (NEGATIVE); Nitrite Urine UA NEGATIVE (Negative); Occult Blood Urine UA NEGATIVE (Negative); Protein Urine UA NEGATIVE (Negative); Specific Gravity Urine UA 1.015 (1.000-1.035); Urobilinogen Urine UA 0.2 E.U./dL (0.2)
[2023-12-23 18:53] LABS: pH Urine UA 7.5 (4.5-8.0)
[2023-12-23 19:03] LABS: Bacteria Urine Many (>30); Culture Indicated Urine Specimen Cultured; RBC Urine 0-1/HPF (0-5/HPF); Squamous Epithelial Cell Urine 1-5 /HPF (0-5/HPF); Urine Volume 10mL (spun); WBC Urine 1-5/HPF (0-5/HPF)
--- NOTE | 2023-12-23 19:53 | PM.OBTRLD ---
Visit Information Visit Information Date of evaluation: 12/23/23 On-call OB Provider: Lorna Silva Comments/Additional reasons for admission: URI symptoms Vital Signs Vital Signs: reviewed in OBIX, within normal parameters; Temp 100.1 verbally reported by RN [facility] Medical History PTSD (post-traumatic stress disorder) (~2020) Anxiety (~2016) Depression (~2016) GERD (gastroesophageal reflux disease) (~2019) Menorrhagia Dysmenorrhea (~2015) Irregular menses Frequent infections Contusion of right elbow Lumbar spine strain Gastroenteritis Abdominal pain Healthy adolescent Surgical History (Updated 08/30/23 @ 21:01 by Luda Avilez) Anesthesia History of endoscopy [place] teeth extracted (~09/02/19) Family History Grandfather Hypertension Heart disease Social History marital status: unmarried,living together number of children: 1 (s/o's son stays with them part-time) household members: significant other and family (father, brother) lives independently: Yes caregiver/support person: No housing: house pets and animals: Yes (outdoor cats) education level: high school (did not finish) 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) special donovan needs: No travel history: over 6 months ago seatbelt use: always water heater temp set < 120 deg: Yes working smoke detector in home: Yes fire extinguisher in home: Yes carbon monox detector in home: Yes firearms in home: Yes firearms unloaded and locked: Yes do you feel safe at home: Yes Smoking Status: Former smoker second hand exposure: Yes (s/o vapes, but usually not at home) alcohol intake: former (occasionally prior to ) substance use type: marijuana (agrees not to use while /) and 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) during the past year weight has: other (very unstable) well-balanced diet: daily or most days daily servings fruits/ve or more times/day caffeine: Yes (small amounts only) Type(s) of exercise: none Objective Labs 04/30/24 17:50 Labs: Laboratory Results - last 24 hr 12/23/23 12/23/23 17:50 18:35 WBC 14.1 H RBC 3.44 L Hgb 9.8 L Hct 29.5 L MCV 85.8 MCH 28.6 MCHC 33.3 RDW 16.2 H Plt Count 287 Neut % (Auto) 81.5 H Lymph % (Auto) 7.5 L [place] % (Auto) 10.6 Eos % (Auto) 0.2 L Baso % (Auto) 0.2 Neut # (Auto) 78293 H Lymph # (Auto) 1100 [place] # (Auto) 1500 H Eos # (Auto) 0 Baso # (Auto) 0 Urine Color Yellow Urine Appearance Clear Urine pH 7.5 Ur Specific [place] 1.015 Urine Protein Negative Urine Glucose (UA) Negative Urine Ketones Negative Urine Occult Blood Negative Urine Nitrate Negative Urine Bilirubin Negative Urine Urobilinogen 0.2 Ur Leukocyte Esterase 1+ H Urine RBC 0-1/hpf Urine WBC 1-5/hpf Ur Squamous Epith Cells 1-5 /hpf Urine Bacteria Many (>30) H Ur Culture Indicated? Specimen cultured Vol Urine Centrifuged 10ml (spun) Evaluation Evaluation Baseline heart rate: 150 Variability: Moderate (11-25) monitor accelerations: Present Monitor Decelerations: Absent Contraction Frequency (minutes): 0 Category of Tracing: Reactive Diagnosis, Plan/Disposition Final Diagnosis (1) Upper respiratory infection: Status: Acute Plan/Disposition Plan: Flu/RSV/Covid negative. Pt received 1L LR given nausea/vomiting today. Advised supportive care for URI, and discharged to home with routine follow-up. OB Disposition: home
[2023-12-23 20:07] LABS: Influenza A - CEPHEID Flu A NEGATIVE (NEGATIVE); Influenza B - CEPHEID Flu B NEGATIVE (NEGATIVE); Respiratory Syncytial Virus Negative (Negative)
[2023-12-23 20:11] LABS: COVID-19 CEPHEID 4-PLEX PCR Negative (Negative)
== END 2023-12-23 21:00 | disposition home or self-care (01) ==
PROVIDERS: Admitting Provider Student in an Organized Health Care Education/Training Program; Family Provider Pediatrics; PCP Family Medicine; Referring Provider Student in an Organized Health Care Education/Training Program; Visit Provider Student in an Organized Health Care Education/Training Program
DX: O99.513 Diseases of the respiratory system complicating pregnancy, third trimester (principal); J06.9 Acute upper respiratory infection, unspecified; Z3A.38 38 weeks gestation of pregnancy
CPT/HCPCS: 87635; 87400 ×3; 87420; 0241U; 59025; 59050; 81001; 85025; 87086; 96360; G0378; G0379

== ENCOUNTER → 2023-12-25 07:40 | Outpatient (CLI) | payer OTHER, MEDICAID, SELFPAY ==
--- NOTE | 2023-12-25 07:41 | DI.US.S_ITS ---
PROCEDURE: US OB FOLLOW UP INDICATIONS: size to dates discrepancy, assess for growth OUTSIDE/PRIOR DATING DATA: Last menstrual period (LMP): 03/23/2023. LMP-based estimated date of delivery (AREN): 12/28/2023. First dating scan (date and location): 05/11/2023. Estimated date of delivery (AREN) from first dating scan: 01/01/2024. The calculations are made using the clinical AREN of 12/28/2023. TECHNIQUE: Real-time scanning was performed of the fetus, with image documentation and biometric measurements. Endovaginal scanning: Not performed. COMPARISON: [facility], , OB >= 14 WEEKS FETUS, 08/22/2023, 16:29. FINDINGS: General: A single living intrauterine gestation is present. Presentation: Vertex. Placenta: Placental position is fundal, without previa. Amniotic fluid index: 8 cm, normal range is 5-24 cm. Single deepest vertical pocket is 2.5 cm. heart rate: 139 beats per minute. Maternal cervical canal: 3.3 cm long. Normal lower limit is 2.5 cm. biometrics: Biparietal diameter: 9.2 cm, 37 weeks 2 days Head circumference: 33.5 cm, 38 weeks 2 days Abdominal circumference: 30.5 cm, 34 weeks 3 days Femur length: 6.8 cm, 34 weeks 5 days Clinically estimated gestational age: 39 weeks 4 days Composite gestational age from present scan: 36 weeks 1 day Estimated weight and percentile: 2608 g, 84th percentile. IMPRESSION: 1. Kirby living intrauterine at 36 weeks 1 day based on today's ultrasound. This is discordant with the clinical dating +/-3 weeks. Estimated weight 2608 g. Vertex position. 2. Normal placenta and amniotic fluid. We strive to produce accurate, complete, and clear reports of imaging services. To assist us in improving patient care, this report was composed using standard report templates and voice recognition software. Therefore, it may contain abnormal punctuation, insertions and/or omissions. Occasional wrong-word or sound-alike substitutions may occur. Though we review the report and make efforts to correct it, we do recommend that the report be read carefully in proper context to recognize any text inaccuracies. Dictated by: Estuardo Lara M.D. on 12/25/2023 at 10:51 Approved by: Estuardo Lara M.D. on 12/25/2023 at 10:57
== END ==
PROVIDERS: Family Provider Pediatrics; PCP Family Medicine; Referring Provider Family Medicine; Visit Provider Family Medicine
DX: O26.843 Uterine size-date discrepancy, third trimester (principal); O16.3 Unspecified maternal hypertension, third trimester; O12.03 Gestational edema, third trimester; Z3A.36 36 weeks gestation of pregnancy
CPT/HCPCS: 36415; 76816; 80053

== ENCOUNTER → 2023-12-25 15:54 | Outpatient (CLI) | payer OTHER, MEDICAID, SELFPAY ==
[2023-12-25 18:16] LABS: Alanine Aminotransferase 11 IU/L (<35); Albumin 3.5 g/dL (3.5-5.0); Albumin Globulin Ratio 1.1 (1.0-2.8); Alkaline Phosphatase 218 U/L (38-126); Aspartate Aminotransferase 20 IU/L (14-36); BUN Creatinine Ratio 12.2 (6-22); Bilirubin Total 0.3 mg/dL (0.2-1.3); Blood Urea Nitrogen 6 mg/dL (7-17); Calcium 9.1 mg/dL (8.4-10.2); Carbon Dioxide 25 mmol/L (22-32); Chloride 108 mmol/L (98-107); Estimated Glomerular Filt Rate > 60 mL/min (>60); Globulin 3.2 g/dL (1.7-4.1); Glucose 68 mg/dL (70-100); HEMOLYSIS < 15 (0-50); Sodium 136 mmol/L (137-145); Total Protein 6.7 g/dL (6.3-8.2)
== END ==
PROVIDERS: Family Provider Pediatrics; Referring Provider Family Medicine; Visit Provider Family Medicine
DX: O16.3 Unspecified maternal hypertension, third trimester (principal); O12.00 Gestational edema, unspecified trimester
CPT/HCPCS: 36415; 80053

== ENCOUNTER → 2023-12-26 07:13 | Outpatient (CLI) | payer OTHER, MEDICAID, SELFPAY ==
--- NOTE | 2023-12-26 07:14 | DI.US.S_ITS ---
PROCEDURE: US UMBILICAL CORD DOPPLER INDICATIONS: POSSIBLE IUGR OUTSIDE/PRIOR DATING DATA: Last menstrual period (LMP): 03/23/2023 LMP-based estimated date of delivery (AREN): 12/28/2023 First dating scan (date and location): 05/11/2023 Estimated date of delivery (AREN) from first dating scan: 01/01/2024 The calculations are made using the working AREN of 12/28/2023. COMPARISON: None. TECHNIQUE: Real-time scanning was performed of the fetus, with image documentation. Color and pulse Doppler interrogation was then performed of the umbilical artery near its insertion into the placenta. FINDINGS: General: Single living intrauterine gestation is present. heart rate is 150 beats per minute. Fetus is in vertex presentation. Placenta location is right fundal. No placenta previa. GILBERT measures 6.2 cm is in the lower range of normal. Largest pocket measures 2.8 cm. Estimated gestational age based on current study is 39 weeks, 5 days. Umbilical artery: 2.7, 2.3 and 1.9 IMPRESSION: 1. Normal umbilical artery S/D ratio. 2. Single live intrauterine gestation with fetus in vertex presentation. heart rate is 150 beats per minute. Normal amount of amniotic fluid. We strive to produce accurate, complete, and clear reports of imaging services. To assist us in improving patient care, this report was composed using standard report templates and voice recognition software. Therefore, it may contain abnormal punctuation, insertions and/or omissions. Occasional wrong-word or sound-alike substitutions may occur. Though we review the report and make efforts to correct it, we do recommend that the report be read carefully in proper context to recognize any text inaccuracies. Dictated by: Nito Rodriguez M.D. on 12/26/2023 at 9:14 Approved by: Nito Rodriguez M.D. on 12/26/2023 at 9:17
[2023-12-26 13:05] LABS: Creatinine Urine Random 27.2 mg/dL
[2023-12-26 13:13] LABS: Microalbumin Urine Random < 0.6 mg/dL (0-1.6)
--- NOTE | 2023-12-26 17:39 | PM.CALLCOV.1 ---
Call Coverage Note Note Date of Patient Contact: 12/26/23 Time of Patient Contact: 17:39 Narrative of Care Provided: 18yo G1 at 39w5d by first trimester US. Pt called on-call provider with c/o concerns for preE. States c/o increased peripheral edema in hands, feet and now face; GIBSON without visual aura, has not tried any tylenol today, worsening SOB. Pt last seen in office 12/25/23 at 39w0d, noted c/o edema, SOB and GIBSON unrelieved with tylenol. Documentation of asymmetric IUGR with EFW 1.9th% (AC <3rd), note formal read on US incorrectly documents appropriate interval growth. Umbilical doppler study obtained this AM and states normal values however unable to read images myself. Patient states she is worried because she was under the impression that her situation was potentially emergent and she did not hear back from her primary OB to discuss plan of care. [facility] labs reviewed however incomplete (LFTs, CR wnl, CBC not resulted and PCR not calculated). imaging reviewed. Patient counseled that our facility is currently diversion; per d/w relief charge nurse[facility] [place] and [place] are also at capacity and unable to accept transfer. Patient states she has access to transport and instructed to proceed emergently to [facility] for further evaluation. Provider contact information (personal cellphone) provided to expedite continutity of care PRN request of admitting facility. Pt verbalized understanding and in agreement.
== END ==
PROVIDERS: Family Provider Pediatrics; Referring Provider Family Medicine; Visit Provider Family Medicine
DX: O36.5990 Maternal care for other known or suspected poor fetal growth, unspecified trimester, not applicable or unspecified (principal); O16.3 Unspecified maternal hypertension, third trimester; O12.00 Gestational edema, unspecified trimester
CPT/HCPCS: 76820; 82043; 82570

== ENCOUNTER 2024-09-09 23:21 | Emergency (ER) | payer OTHER, SELFPAY ==
[2024-09-09 23:24] VITALS: BP 106/65; PULSE 142; RESP 16; TEMP 39.4; O2SAT 100; BMI 22.3
[2024-09-09] MEDS: SODIUM CHLORIDE 0.9% 1,000 ML 1000 ML IV (23:58)
[2024-09-09] MEDS: ONDANSETRON 4 MG/2 ML INJ IV (23:58)
[2024-09-09] MEDS: KETOROLAC 30 MG/ML VIAL 15 MG IV (23:58)
[2024-09-10] VITALS (17 sets, daily range): BP systolic 95–109; BP diastolic 48–66; PULSE 97–119; RESP 13–26; TEMP 38.2–38.3; O2SAT 96–100
--- NOTE | 2024-09-10 | ED.FEVER ---
HPI - Fever General Chief Complaint: Fever Stated Complaint: headache, vomiting, fever Time Seen by Provider: 09/09/24 23:50 Source: patient, RN notes reviewed and old records reviewed Mode of arrival: Ambulatory Limitations: no limitations History of Present Illness HPI Narrative: 18-year-old female presents with complaint of fever, headache, nausea and vomiting patient states she has had some mild congestion. Denies any sore throat. Denies any chest pain or shortness of breath. Has a little bit of a cough but describes very mild. She has had nausea throughout the day. Has had 2 episodes of vomiting. Denies any chest pain or shortness of breath. She was but states she has not appreciate any breast tenderness or skin changes. Denies any upper abdominal pain, denies flank pain. Does note pain with urination at the suprapubic area. No urgency or frequency. States no issues with bowel movements. States she was kind of hurt all over but particularly in her back and neck. She actually finds having her knees flexed and curled into them to be her most comfortable position. Patient denies any rash or skin changes otherwise. Possible sick contacts but she was unsure. Symptoms started about 24 hours ago has had fevers throughout has had 3000 mg of Tylenol last dose was about 4 hours ago. She states no daily medications. No prior surgeries other than wisdom teeth. Former smoker, no regular alcohol, occasional marijuana but no recreational or IV drugs. She is accompanied by her child and significant other. Related Data Previous Rx's Medication Instructions Recorded ondansetron 4 mg disintegrating 4 mg PO Q8H PRN nausea and 10/09/22 tablet vomiting #10 tabs ferrous gluconate 240 mg (27 mg 240 mg PO Q OTHER DAY 60 days #30 09/16/23 iron) tablet (Fergon) tabs triamcinolone acetonide 0.1 % 1 applic topical BID #80 grams 10/14/23 topical cream hydroxyzine pamoate 25 mg capsule 25 mg PO BEDTIME PRN for anxiety 10/24/23 (Vistaril) #60 caps Allergies Allergy/AdvReac Type Severity Reaction Status Date / Time piperacillin [From Zosyn] Allergy Verified 09/10/24 04:20 tazobactam [From Zosyn] Allergy Verified 09/10/24 04:20 gluten AdvReac Intermediate Abdominal Verified 02/10/24 11:36 Pain Review of Systems Review of Systems ROS Unobtainable: All systems reviewed & are unremarkable except as noted in HPI and below Patient History Medical History hemorrhage Severe pre-eclampsia PTSD (post-traumatic stress disorder) (~2020) Anxiety (~2016) Depression (~2016) GERD (gastroesophageal reflux disease) (~2019) Menorrhagia Dysmenorrhea (~2015) Irregular menses Frequent infections Contusion of right elbow Lumbar spine strain Gastroenteritis Abdominal pain Healthy adolescent Surgical History Anesthesia History of endoscopy [place] teeth extracted (~09/02/19) Family History Grandfather Hypertension Heart disease Social History marital status: unmarried,living together number of children: 1 household members: significant other and family lives independently: Yes caregiver/support person: No housing: house pets and animals: Yes (outdoor cats) education level: high school occupational status: employed current occupational exposures/hazards: Yes (cleaning chemicals) special donovan needs: No travel history: over 6 months ago seatbelt use: always water heater temp set < 120 deg: Yes working smoke detector in home: Yes fire extinguisher in home: Yes carbon monox detector in home: Yes firearms in home: Yes firearms unloaded and locked: Yes do you feel safe at home: Yes Smoking Status: Former smoker second hand exposure: Yes (s/o vapes, but usually not at home) alcohol intake: former substance use type: marijuana and crack/cocaine during the past year weight has: other well-balanced diet: daily or most days daily servings fruits/ve or more times/day caffeine: Yes (small amounts only) Type(s) of exercise: none Smoking Status: Former smoker alcohol intake frequency: holidays/special occasions only Exam Narrative Exam Narrative: GEN: Well-nourished female, alert and oriented x 3, patient appears to be in [id number] distress. Patient is warm to the touch. HEENT: Atraumatic, pupils are equal round reactive to light, extraocular movements are intact, mild nasal congestion, TMs are clear with no fluid, there is no conjunctival pallor. Throat is clear without any exudates, erythema, tonsillar enlargement or uvular deviation, negative Kernig's and Brudzinski's. HEART: Tachycardic but regular and rhythm without murmur, clicks, rubs. Pulses are equal in upper and lower extremities LUNGS:Lungs clear to auscultation, no wheezes, rales, crackles, chest moves symmetrically, no tachypnea or accessory muscle use ABD:bowel sounds normal, soft, non-tender, no guarding, rebound, rigidity, no masses noted, no hepatosplenomegaly :No CVA tenderness MSCL: Non-tender, no muscle atrophy, muscles strength 5/5 upper and lower extremities, full range of motion, normal gait NEURO:CN 2-12 intact, sensation normal. SKIN: No rash, erythema or other skin changes noted. Patient does not have any breast tenderness or skin changes on exam. Chaperoned by KEON Randolph Initial Vital Signs Initial Vital Signs: Vital Signs Temperature 103.0 F H 09/09/24 23:24 Pulse Rate 142 H 09/09/24 23:24 Respiratory Rate 16 09/09/24 23:24 Blood Pressure 106/65 09/09/24 23:24 Pulse Oximetry 100 09/09/24 23:24 Oxygen Delivery Method Room Air 09/09/24 23:24 Course Orders Ordered: ED Orders 09/09/24 23:46 Blood Culture Stat Complete Blood Count AUTO DIFF Stat Comprehensive Metabolic Panel Stat Lactate (Lactic Acid) Stat Lipase Stat Procalcitonin Stat Troponin & CK Cardiac Panel Stat 09/09/24 23:50 Respiratory Panel (Film Array) Stat EKG-12 Lead Stat 09/10/24 00:10 Chest [XR chest 1V] Stat 09/10/24 00:12 Urinalysis and Microscopic Stat Urine Culture Stat 09/10/24 02:00 CT abdomen pelvis w con Stat Discontinued Medications Acetaminophen (Acetaminophen 325 Mg Tablet) 975 mg PO NOW ONE Stop: 09/10/24 02:01 Last Admin: 09/10/24 02:06 Dose: 975 mg Documented By: AB Diphenhydramine HCl (Diphenhydramine 50 Mg/Ml Vial) 50 mg IV NOW ONE Stop: 09/10/24 04:18 Last Admin: 09/10/24 04:24 Dose: 50 mg Documented By: Sodium Chloride (Normal Saline 0.9%) 1,000 mls @ 1,000 mls/hr IV BOLUS ONE Stop: 09/10/24 00:50 Last Infusion: 09/10/24 01:05 Dose: Infused Documented By: Admin: 09/09/24 23:58 Dose: 1,000 mls/hr Documented By: ARLEN Sodium Chloride (Normal Saline 0.9%) 1,000 mls @ 1,000 mls/hr IV BOLUS ONE Stop: 09/10/24 02:35 Last Infusion: 09/10/24 03:00 Dose: Infused Documented By: Admin: 09/10/24 01:59 Dose: 1,000 mls/hr Documented By: Piperacillin Sod/Tazobactam (Sod 4.5 gm/ Sodium Chloride) 100 mls @ 200 mls/hr IV NOW ONE Stop: 09/10/24 03:40 Last Infusion: 09/10/24 04:15 Dose: Infused Documented By: Admin: 09/10/24 03:56 Dose: 200 mls/hr Documented By: Ketorolac Tromethamine (Ketorolac 30 Mg/Ml Vial) 15 mg IV NOW ONE Stop: 09/09/24 23:51 Last Admin: 09/09/24 23:58 Dose: 15 mg Documented By: ARLEN Methylprednisolone (Methylprednisolone 125 Mg/2 Ml Vial) 125 mg IV NOW ONE Stop: 09/10/24 04:18 Last Admin: 09/10/24 04:24 Dose: 125 mg Documented By: Metoclopramide HCl (Metoclopramide 10 Mg/2 Ml Inj) 10 mg IV NOW ONE Stop: 09/10/24 00:49 Last Admin: 09/10/24 00:55 Dose: 10 mg Documented By: DARLIN Ondansetron HCl (Ondansetron 4 Mg/2 Ml Inj) 4 mg IV NOW ONE Stop: 09/09/24 23:52 Last Admin: 09/09/24 23:58 Dose: 4 mg Documented By: ARLEN Vital Signs Vital signs: Vital Signs - 8 hr 09/09/24 23:24 09/10/24 00:24 09/10/24 00:25 Temperature 103.0 F H Pulse Rate 142 H 116 H 116 H Respiratory Rate 16 21 Blood Pressure 106/65 Pulse Oximetry 100 Oxygen Delivery Method Room Air 09/10/24 00:25 09/10/24 00:30 09/10/24 00:30 Temperature Pulse Rate 109 H Respiratory Rate 24 Blood Pressure 103/57 L 109/54 L Pulse Oximetry 99 Oxygen Delivery Method 09/10/24 01:00 09/10/24 01:00 09/10/24 01:05 Temperature 100.9 F H Pulse Rate 113 H Respiratory Rate 19 Blood Pressure 96/52 L Pulse Oximetry 100 Oxygen Delivery Method 09/10/24 01:30 09/10/24 02:00 09/10/24 02:06 Temperature 100.9 F H Pulse Rate 117 H 115 H Respiratory Rate 24 17 Blood Pressure Pulse Oximetry 98 98 Oxygen Delivery Method 09/10/24 02:30 09/10/24 02:36 09/10/24 02:36 Temperature Pulse Rate 119 H 119 H Respiratory Rate 26 H 18 Blood Pressure 99/48 L Pulse Oximetry 97 97 Oxygen Delivery Method 09/10/24 02:38 09/10/24 02:38 09/10/24 03:00 Temperature Pulse Rate 118 H Respiratory Rate 18 Blood Pressure 101/49 L 95/49 L Pulse Oximetry 96 Oxygen Delivery Method 09/10/24 03:00 09/10/24 03:07 09/10/24 03:34 Temperature 100.8 F H Pulse Rate 113 H 105 H Respiratory Rate Blood Pressure Pulse Oximetry 97 98 Oxygen Delivery Method Room Air 09/10/24 04:00 09/10/24 04:30 09/10/24 05:01 Temperature Pulse Rate 102 H 97 H 100 H Respiratory Rate 13 Blood Pressure 104/66 Pulse Oximetry 96 96 Oxygen Delivery Method Room Air MDM - Fever Lab Data 09/09/24 23:46 09/09/24 23:46 Labs: Lab Results 09/09/24 09/10/24 09/10/24 Range/Units 23:46 00:05 00:12 WBC 11.7 H (4.5-11.0) X10^3/uL RBC 4.62 (4.0-5.2) X10^6/uL Hgb 13.5 (12.0-16.0) g/dL Hct 40.8 (36-46) % MCV 88.3 (80-100) fL MCH 29.3 (26-34) PG MCHC 33.2 (30-36) % RDW 13.9 (11.6-14.8) % Plt Count 237 (150-400) X10^3/uL Neut % (Auto) 87.9 H (50-75) % Lymph % (Auto) 6.2 L (25-40) % [place] % (Auto) 5.2 (3-14) % Eos % (Auto) 0.4 L (2-4) % Baso % (Auto) 0.3 (0-2) % Neut # (Auto) 46514 H (9639-8677) /uL Lymph # (Auto) 700 L (2857-5184) /uL [place] # (Auto) 600 (0-900) /uL Eos # (Auto) 100 (0-450) /uL Baso # (Auto) 0 (0-100) /uL Sodium 137 (137-145) mmol/L Potassium 3.6 (3.4-5.1) mmol/L Chloride 103 (98-107) mmol/L Carbon Dioxide 29 (22-32) mmol/L BUN 12 (7-17) mg/dL Creatinine 0.74 (0.52-1.04) mg/dL Estimated GFR > 60 (>60) mL/min BUN/Creatinine Ratio 16.2 (6-22) Glucose 93 (70-100) mg/dL Lactate 1.3 (0.7-2.1) mmol/L Calcium 9.1 (8.4-10.2) mg/dL Total Bilirubin 0.8 (0.2-1.3) mg/dL AST 50 H (14-36) IU/L ALT 45 H (<35) IU/L Alkaline Phosphatase 103 (38-126) U/L Total Creatine Kinase 47 (30-135) U/L Troponin I < 0.012 (0.01-0.034) ng/mL Total Protein 8.7 H (6.3-8.2) g/dL Albumin 4.8 (3.5-5.0) g/dL Globulin 3.9 (1.7-4.1) g/dL Albumin/Globulin Ratio 1.2 (1.0-2.8) Lipase 81 (23-300) U/L Procalcitonin 0.256 (<0.5) ng/mL Urine Color Yellow Urine Appearance Clear Urine pH 8.5 H (4.5-8.0) Ur Specific [place] 1.010 (1.000-1.035) Urine Protein Negative (Negative) Urine Glucose (UA) Negative (Negative) g/dL Urine Ketones Negative (NEGATIVE) Urine Occult Blood Trace-intact (Negative) Urine Nitrate Negative (Negative) Urine Bilirubin Negative (NEGATIVE) Urine Urobilinogen 0.2 (0.2) E.U./dL Ur Leukocyte Esterase Negative (NEGATIVE) Urine RBC 5-10/hpf H (0-5/HPF) Urine WBC 0-1/hpf (0-5/HPF) Ur Squamous Epith Cells 10-30 /hpf H D (0-5/HPF) Urine Bacteria Moderate (10-30) H (None) Ur Culture Indicated? Cult not indicated Vol Urine Centrifuged 10ml (spun) Chlamy pneumoniae PCR Not detected (Not Detect) Adenovirus (PCR) Not detected (Not Detect) B. pertussis DNA (PCR) Not detected (Not Detect) B.parapertussis DNA PCR Not detected (Not Detecte) Coronavirus OC43 (PCR) Not detected (Not Detect) Coronavirus HKU1 (PCR) Not detected (Not Detect) Coronavirus 229E (PCR) Not detected (Not Detect) SARS-CoV-2 (PCR) Not detected (Not Detecte) Coronavirus NL63 (PCR) Not detected (Not Detect) Human Metapneumovir PCR Not detected (Not Detect) Influenza Type A (PCR) Not detected (Not Detect) Influenza Type B (PCR) Not detected (Not Detect) M. pneumoniae (PCR) Not detected (Not Detect) Parainfluenza 1 (PCR) Not detected (Not Detect) Parainfluenza 2 (PCR) Not detected (Not Detect) Parainfluenza 3 (PCR) Not detected (Not Detect) Parainfluenza 4 (PCR) Not detected (Not Detect) RSV (PCR) Not detected (Not Detect) Entero/Rhino (PCR) Not detected (Not Detect) Point of Care Testing Test Results Negative Imaging Data Chest x-ray: Radiologist's Impression: Linh Maddox??She/Her/Hers??18??F??2005 ? Allergy/Adv: gluten (More??) Close Chest X-Ray (Signed) Daniella King - 09/10/24 Doppler Study Ultrasound (Signed) MichaelRadhaNito - 12/26/23 Obstetrics Ultrasound (Signed) MarcoEstuardo - 12/25/23 Ultrasound (Signed) Kareem Guerrero - 08/22/23 Obstetrics Ultrasound (Signed) Michael,Max - 07/28/23 Ultrasound (Signed) CarreraQuique bailey - 05/11/23 Chest X-Ray (Signed) Max Onofre - 04/07/23 Abdomen/Pelvis CT (Signed) Eladio Lopez - 10/09/22 Hand X-Ray (Signed) Carrera,Quique - 02/26/22 Pelvis Ultrasound (Signed) Regis Alvares - 07/05/21 Abdomen Ultrasound (Signed) MarcoEstuardo - 11/04/19 Launch?[place] [address] XRay Report Signed Patient: Linh Maddox MR#: [id number] : 2005 Acct:[id number] Age/Sex: 18 / F Date of Service: 09/10/24 Loc: ED Accession Number: [id number] Procedure: XR chest 1V Ordering Provider: Aria Rae D.O. PROCEDURE: XR CHEST 1V INDICATIONS: fever, cough, rodriguez, vomiting TECHNIQUE: One view of the chest was acquired. COMPARISON: [facility], , XR CHEST 2V, 04/07/2023, 12:43. FINDINGS: Surgical changes and devices: None. Lungs and pleura: Lungs are clear. No pleural effusions or pneumothorax. Mediastinum: Mediastinal contours appear normal. Heart size is normal. Bones and chest wall: No suspicious bony lesions. Overlying soft tissues appear unremarkable. IMPRESSION: No acute cardiopulmonary abnormality is seen. Approved by: Daniella King M.D.,Ph.D. on 09/10/2024 at 0:39 ? [facility] Narrative Medical decision making narrative: 18-year-old female comes in with complaint of fevers, nausea vomiting headache and neck pain but also little bit of suprapubic discomfort with urination. Patient is febrile tachycardic tachycardia and fever been improving with fluids and Toradol. Patient was having nausea so received Zofran as well as Reglan. Workup shows little bit of blood clear urinary infection mastitis was included differential but nontender no redness. Patient is actually more comfortable in a flexed position and moves her head well but meningitis was on the differential. Labs show white count 11.7 hemoglobin of 13.5 platelets of 237 predominance of neutrophils. Chemistries show normal electrolytes BUN and creatinine, glucose is 93 lactate 1.3 AST ALT are slightly elevated at 15 45 otherwise normal LFTs troponins less than 0.12 procalcitonin is 0.256. Urine shows trace blood no ketones no nitrates no new leukocyte esterase 5-10 red cells 1 white cell 10-30 squamous moderate bacteria. Negative poc . Respiratory panel is negative. Chest x-ray shows no acute change 0201 on recheck patient states she was feeling somewhat improved. Temperature had come down to still slightly tachycardic receiving a 2 L. reviewed findings thus far still has a little bit of a headache has a good range of motion meningitis seems a little bit lower in the differential she was still has a little abdominal discomfort noted some blood in her urine she states she finished her period about 3 days ago or hematuria this could be leftover repeat abdominal exam she states she was tender with palpation particularly in the lower abdomen not specifically right compared to left but less so in the upper. We will obtain CT abdomen pelvis. CT abdomen pelvis shows lung bases are clear no pericardial effusion or pleural effusion, liver, gallbladder, pancreas spleen, adrenal glands and kidneys are normal no mesenteric or retroperitoneal lymphadenopathy no abdominal ascites. No free fluid in the pelvis or pelvic adenopathy questionable bicarb in it uterus. Bladder is unremarkable colon and small bowel are normal appendix is not seen no suspicious lytic or sclerotic osseous lesions identified. Appendix is not clearly visualized. 0412 on rechecked patient states she was feeling much better. Discussed did not find a clear source at this time. Discussed meningitis is on the differential. Discussed would recommend lumbar puncture patient politely defers. After discussion patient defers. Discussed I would be happy to perform this to rule it out. She states she will return if she continues to feel badly or like worsening. We did discuss blood pressures has been she was unsure of her normal tachycardia has significantly improved. She was nontoxic appearing. 0420 Patient developed a hive on her R cheek while receiving Zosyn has 1 small hive on her thigh no off her allergic changes but suspect she was having a reaction to the Zosyn. Patient was given Benadryl and Solu-Medrol. She denies any other airway, no swelling of her throat, no chest pain no shortness of breath no nausea or vomiting no diarrhea at this time. Zosyn was stopped. 0438 Patient hive is resolving. She continues to feel better. She was playing with the baby at bedside smiling and appears comfortable. Will monitor for minimum 30 minutes. If no additional symptoms will continue with plan for d/c home with strict return precautions. Discharge Plan Departure Patient Disposition: Home Clinical Impression: Fever Activity Restrictions/Additional Instructions: We have not found a clear source for your fever today, meningitis is still on the differential or list of possible causes the only way to rule this out as a lumbar puncture. There are different kinds of meningitis such as viral or bacterial but bacterial meningitis can be deadly. As you have elected to hold off on having this performed today you should return if you are feeling worse. You can continue with the acetaminophen up to a 1000 mg every 6 hours and/or ibuprofen up to 600 mg every 6 hours as needed for fevers. Continue to hydrate regularly. I did recommend that you take Pepcid 20 mg twice daily [id number] as you did appear to have a reaction to the antibiotic received. Please return for worsening headaches, any changes to mentation, persistent vomiting, chest pain or shortness of breath, coughing up blood, new abdominal back or flank pain, difficulty with urination, black or bloody stools, difficulty with movement or other new or concerning changes. Prescriptions: No Action hydroxyzine pamoate [Vistaril] 25 mg capsule 25 mg PO BEDTIME PRN (Reason: for anxiety ) Qty: 60 0RF triamcinolone acetonide 0.1 % cream 1 applic topical BID Qty: 80 1RF ferrous gluconate [Fergon] 240 mg (27 mg iron) tablet 240 mg PO Q OTHER DAY 60 Days Qty: 30 2RF ondansetron 4 mg tablet,disintegrating 4 mg PO Q8H PRN (Reason: nausea and vomiting) Qty: 10 0RF Referrals: Miscellaneous,Doctor, MD [Primary Care Provider] - Stand Alone Forms: Patient Portal/API/Survey
[2024-09-10 00:04] LABS: Add Manual Diff / Slide Review NO; Basophils Absolute Auto 0 /uL (0-100); Basophils Percent Auto 0.3 % (0-2); Eosinophils Absolute Auto 100 /uL (0-450); Eosinophils Percent Auto 0.4 % (2-4); Hematocrit 40.8 % (36-46); Hemoglobin 13.5 g/dL (12.0-16.0); Lymphocytes Absolute Auto 700 /uL (1100-4500); Lymphocytes Percent Auto 6.2 % (25-40); Mean Corpuscular HGB Conc 33.2 % (30-36); Mean Corpuscular Hemoglobin 29.3 PG (26-34); Mean Corpuscular Volume 88.3 fL (80-100); Monocytes Absolute Auto 600 /uL (0-900); Monocytes Percent Auto 5.2 % (3-14); Neutrophils Absolute Auto 10300 /uL (1500-7000); Neutrophils Percent Auto 87.9 % (50-75); Platelet Count 237 X10^3/uL (150-400); Red Blood Cell Count 4.62 X10^6/uL (4.0-5.2); Red Cell Distribution Width 13.9 % (11.6-14.8); White Blood Cell Count 11.7 X10^3/uL (4.5-11.0)
--- NOTE | 2024-09-10 00:10 | DI.RAD.S_ITS ---
PROCEDURE: XR CHEST 1V INDICATIONS: fever, cough, rodriguez, vomiting TECHNIQUE: One view of the chest was acquired. COMPARISON: [facility], CR, XR CHEST 2V, 04/07/2023, 12:43. FINDINGS: Surgical changes and devices: None. Lungs and pleura: Lungs are clear. No pleural effusions or pneumothorax. Mediastinum: Mediastinal contours appear normal. Heart size is normal. Bones and chest wall: No suspicious bony lesions. Overlying soft tissues appear unremarkable. IMPRESSION: No acute cardiopulmonary abnormality is seen. Approved by: Daniella King M.D.,Ph.D. on 09/10/2024 at 0:39
[2024-09-10 00:12] LABS: Lactate (Lactic Acid) 1.3 mmol/L (0.7-2.1)
[2024-09-10 00:13] LABS: Alanine Aminotransferase 45 IU/L (<35); Albumin 4.8 g/dL (3.5-5.0); Albumin Globulin Ratio 1.2 (1.0-2.8); Alkaline Phosphatase 103 U/L (38-126); Aspartate Aminotransferase 50 IU/L (14-36); BUN Creatinine Ratio 16.2 (6-22); Bilirubin Total 0.8 mg/dL (0.2-1.3); Blood Urea Nitrogen 12 mg/dL (7-17); Calcium 9.1 mg/dL (8.4-10.2); Carbon Dioxide 29 mmol/L (22-32); Chloride 103 mmol/L (98-107); Creatine Kinase 47 U/L (30-135); Estimated Glomerular Filt Rate > 60 mL/min (>60); Globulin 3.9 g/dL (1.7-4.1); Glucose 93 mg/dL (70-100); HEMOLYSIS < 15 (0-50); Lipase 81 U/L (23-300); Potassium 3.6 mmol/L (3.4-5.1); Sodium 137 mmol/L (137-145); Total Protein 8.7 g/dL (6.3-8.2)
[2024-09-10 00:25] LABS: Troponin I < 0.012 ng/mL (0.01-0.034)
[2024-09-10 00:30] LABS: Procalcitonin 0.256 ng/mL (<0.5)
[2024-09-10 00:33] LABS: Appearance Urine UA CLEAR; Bilirubin Urine UA NEGATIVE (NEGATIVE); Color Urine UA YELLOW; Glucose Urine UA NEGATIVE (Negative); Ketones Urine UA NEGATIVE (NEGATIVE); Leukocyte Esterase Urine UA NEGATIVE (NEGATIVE); Nitrite Urine UA NEGATIVE (Negative); Occult Blood Urine UA TRACE-INTACT (Negative); Protein Urine UA NEGATIVE (Negative); Urobilinogen Urine UA 0.2 E.U./dL (0.2); pH Urine UA 8.5 (4.5-8.0)
[2024-09-10 00:39] LABS: Bacteria Urine Moderate (10-30); RBC Urine 5-10/HPF (0-5/HPF); Squamous Epithelial Cell Urine 10-30 /HPF (0-5/HPF); Urine Volume 10mL (spun); WBC Urine 0-1/HPF (0-5/HPF)
[2024-09-10 00:40] LABS: Culture Indicated Urine Cult Not Indicated
[2024-09-10] MEDS: METOCLOPRAMIDE 10 MG/2 ML INJ IV (00:55)
[2024-09-10 01:24] LABS: Adenovirus Not Detected (Not Detect); B. parapertussis Not Detected (Not Detecte); Bordetella pertussis Not Detected (Not Detect); Chlamydophila pneumoniae Not Detected (Not Detect); Coronavirus 229E Not Detected (Not Detect); Coronavirus HKU1 Not Detected (Not Detect); Coronavirus NL 63 Not Detected (Not Detect); Coronavirus OC43 Not Detected (Not Detect); Human Metapneumovirus Not Detected (Not Detect); Human Rhinovirus/Enterovirus Not Detected (Not Detect); Influenza A Not Detected (Not Detect); Influenza B Not Detected (Not Detect); Mycoplasma pneumoniae Not Detected (Not Detect); Parainfluenza Virus 1 Not Detected (Not Detect); Parainfluenza Virus 2 Not Detected (Not Detect); Parainfluenza Virus 3 Not Detected (Not Detect); Parainfluenza Virus 4 Not Detected (Not Detect); Respiratory Syncytial Virus Not Detected (Not Detect); SARS- CoV-2 Not Detected (Not Detecte)
[2024-09-10] MEDS: SODIUM CHLORIDE 0.9% 1,000 ML 1000 ML IV (01:59)
--- NOTE | 2024-09-10 02:00 | DI.CT.S_ITS ---
PROCEDURE: CT ABDOMEN PELVIS W CON INDICATIONS: fever, n/v, pelvic pain TECHNIQUE: After the administration of intravenous contrast, axial sections acquired from the lung bases to the pubic symphysis. Coronal and sagittal reformats were performed. For radiation dose reduction, the following was used: automated exposure control, adjustment of mA and/or kV according to patient size. COMPARISON: None. FINDINGS: Image quality: Diagnostic. Lower Chest: No significant findings. ABDOMEN: Liver: No solid mass. Gallbladder: No radiopaque gallstones or wall thickening. Biliary ducts: No biliary dilation. Pancreas: No ductal dilation. Spleen: Size is within normal limits. Adrenal Glands: No adrenal nodules. Kidneys and Ureters: No hydronephrosis. No solid mass. No complex renal cystic lesion which requires follow up. Stomach and Bowel: Normal colonic caliber, without significant wall thickening. Normal appendix. Peritoneum: No abnormal intraperitoneal fluid. No free air. Ventral Wall: No significant ventral hernia. Abdominal Nodes: No retroperitoneal or mesenteric adenopathy by size criteria. Vessels: Aorta and inferior vena cava are normal in size. PELVIS: Pelvic Organs: Ovaries are symmetric in position. Bladder: No bladder wall thickening, accounting for underdistention. Pelvic Nodes: No enlarged lymph nodes. Miscellaneous: No inguinal hernias are seen. Bones: No aggressive osseous abnormality. IMPRESSION: No acute abnormality. Normal appendix. Normal gallbladder. No nephrolithiasis or hydronephrosis. Symmetric position of the ovaries. Agree with preliminary report. Dictated by: Max Rodriguez M.D. on 09/10/2024 at 8:57 Approved by: Max Rodriguez M.D. on 09/10/2024 at 9:00
[2024-09-10] MEDS: ACETAMINOPHEN 325 MG TABLET 975 MG PO (02:06)
--- NOTE | 2024-09-10 03:26 | PC.NURSE ---
to CT per wc
[2024-09-10] MEDS: PIPERACILLIN/TAZO 4.5 GM in SODIUM CHLORIDE 0.9% 100 ML IV (03:56)
--- NOTE | 2024-09-10 04:21 | PC.NURSE ---
Pt had allergic reaction to Zoysn, stopped infusion, added to list. Medications order by provider due to hives on face, and possibly starting on right leg.
[2024-09-10] MEDS: diphenhydrAMINE 50 MG/ML VIAL IV (04:24)
[2024-09-10] MEDS: methylPREDNISolone 125 MG/2 ML VIAL IV (04:24)
== END 2024-09-10 05:01 | disposition home or self-care (01) ==
PROVIDERS: Emergency Provider Emergency Medicine; Family Provider Pediatrics
DX: R50.9 Fever, unspecified (principal); R51.9 Headache, unspecified; R11.2 Nausea with vomiting, unspecified; R00.0 Tachycardia, unspecified; R10.9 Unspecified abdominal pain; T36.0X5A Adverse effect of penicillins, initial encounter
CPT/HCPCS: 36415; 71045; 74177; 80053; 81001; 81025; 82550; 83605; 83690; 84145; 84484; 85025; 87040; 87086; 87633; 96361; 96365; 96375; 99285; J1200; J1885; J2405; J2543; J2765; J2919; Q9967